=== PATIENT | female | born 1995 | race Caucasian/White ===

== ENCOUNTER 2017-08-26 18:33 | Emergency (ER) | payer OTHER ==
[~2017-08-26] VITALS: Ht 157.5 cm; Wt 63.0 kg
[2017-08-26 19:30] LABS: HEMATOCRIT 42.1 % (36.0-46.0); MCH 31.5 PG (29.0-34.0); MCHC 35.4 G/DL (30.0-36.0); MEAN PLAT.VOLUME 9.7 uM^3 (9.5-12.4); PLATELET COUNT 253 K/uL (156-360); RBC DIS.WIDTH-SD 39.8 % (39-53); RED BLOOD COUNT 4.73 M/uL (3.80-5.20); WHITE BLOOD COUNT 14.6 K/uL (4.1-10.2)
[2017-08-26 19:42] LABS: CHLORIDE 107 mEq/L (99-109); POTASSIUM 3.6 mEq/L (3.7-5.4); SODIUM 139 mEq/L (136-147)
[2017-08-26 19:43] LABS: GLUCOSE 227 mg/dL (70-99)
[2017-08-26 19:45] LABS: ANION GAP 12 MEQ/L (2-14)
[2017-08-26 19:47] LABS: GFR ESTIMATE (CALCULATED) > 59 mL/min/
[2017-08-26 19:48] LABS: UREA NITROGEN (BUN) 27 mg/dL (9-23)
[2017-08-26 19:55] LABS: QUANTITATIVE HCG < 4.0 MIU/ML
[2017-08-26 20:39] LABS: ADD MIUA? YES; BILIRUBIN NEGATIVE; BLOOD NEGATIVE; COLOR YELLOW ((YELLOW)); GLUCOSE (STRIP) NEGATIVE; KETONES 5; LEUKOCYTES MODERATE; NITRITE NEGATIVE; PROTEIN (STRIP) NEGATIVE; SPECIFIC GRAVITY 1.028 (1.000-1.030); UROBILINOGEN 0.2 MG/DL (0.2-1.0)
[2017-08-26 20:48] LABS: BACTERIA 1+ /HPF; EPITHELIAL CELLS 1+ /HPF; GRANULAR CASTS 0-5 /LPF; HYALINE CASTS 0-5 /LPF; MUCUS TRACE /LPF; RED BLOOD CELLS 0-5 /HPF (0-5); UCUL ADDED? YES
[2017-08-26] MEDS ORDERED: PREDNISONE20 MG PO (21:38)
[2017-08-26] MEDS ORDERED: PEPCID20 MG PO (21:38)
[2017-08-26 21:46] LABS: INTERNAL CONTROL VALID? YES; MONOSPOT (MONONUCLEOSIS SEROL) NEGATIVE
[2017-08-26 22:32] LABS: Estimated Average Glucose 94 mg/dL (70-123); HEMOGLOBIN A1c (GLYCOHEMOGLOB) 4.9 % HGB (Below 5.7)
[2017-08-26 22:43] VITALS: BP 130/84
== END 2017-08-26 22:44 | disposition home or self-care (01) ==
LOC: EME 18:33
PROVIDERS: Physician Assistant
DX: T78.40XA Allergy, unspecified, initial encounter (principal); R73.9 Hyperglycemia, unspecified; J45.909 Unspecified asthma, uncomplicated
CPT/HCPCS: 80048; 81003; 82010; 83036; 84443; 84702; 85027; 86308; 87086; 99281; 99284